=== PATIENT | female | born 1975 | race Hispanic/Latino ===

== ENCOUNTER 2021-09-14 12:50 | Emergency (ER) | payer OTHER ==
[2021-09-14 12:58] VITALS: BP 125/79
[2021-09-14 15:11] LABS: Basophils % (Auto) 0.1 % (0.0-1.8); Eosinophils # (Auto) 0.2 K/mm3 (0.0-0.4); Eosinophils % (Auto) 1.8 % (0.0-4.3); Hematocrit 43.6 % (30.3-42.9); Hemoglobin 13.8 gm/dl (10.1-14.3); Lymphocytes # (Auto) 2.7 K/mm3 (1.2-5.4); Lymphocytes % (Auto) 30.5 % (13.4-35.0); Mean Corpuscular HGB Conc 32 % (30-34); Mean Corpuscular Volume 88 fl (79-97); Monocytes # (Auto) 0.4 K/mm3 (0.0-0.8); Monocytes % (Auto) 4.3 % (0.0-7.3); Platelet Count 275 K/mm3 (140-440); Red Blood Count 4.97 M/mm3 (3.65-5.03); Red Cell Distribution Width 13.8 % (13.2-15.2)
[2021-09-14 15:31] LABS: Alanine Aminotransferase 19 units/L (7-56); Albumin 4.2 g/dL (3.9-5); Blood Urea Nitrogen 15 mg/dL (7-17); Calcium 9.6 mg/dL (8.4-10.2); Hemolysis Index 31
[2021-09-14 15:34] LABS: BUN/Creatinine Ratio 21
--- NOTE | 2021-09-14 15:48 | Emergency Department Report ---
ED Female HPI - General Chief complaint: Urogenital-Female Stated complaint: CAN'T PEE Time Seen by Provider: 09/14/21 14:53 Source: patient Mode of arrival: Ambulatory Limitations: No Limitations - History of Present Illness Initial comments: Patient is a 46-year-old female presents emergency room with complaints of urinary retention. Patient states that she was at [facility] on 09/09/21 for urinary retention and had a Wong catheter placed at that time and states that she had blood work and UA performed and was placed on ciprofloxacin. She states that last night her Wong catheter came out. She states since then she has been having some urinary retention. She reports that whenever she tries to urinate it is very painful and she has been experiencing back pain. She states that she believes the Cipro is not helping and states that she has been having hematuria and blood clots present. Patient states that she has an appointment with a urologist on 09/18/20. No allergies to medications. She reports that after having the Wong catheter placed in the emergency department her pain has significantly improved. - Related Data Previous Rx's Medication Instructions Recorded Last Taken Type cephALEXin [Keflex] 500 mg PO BID 10 Days #20 capsule 09/14/21 Unknown Rx ED Review of Systems ROS: Stated complaint: CAN'T PEE Other details as noted in HPI Comment: All other systems reviewed and negative ED Past Medical Hx - Medications Home Medications: Home Medications Medication Instructions Recorded Confirmed Last Taken Type cephALEXin [Keflex] 500 mg PO BID 10 Days #20 capsule 09/14/21 Unknown Rx ED Physical Exam - General Limitations: No Limitations General appearance: alert, in no apparent distress - Head Head exam: Present: atraumatic, normocephalic - Eye Eye exam: Present: normal appearance - ENT ENT exam: Present: mucous membranes moist - Respiratory Respiratory exam: Present: normal lung sounds bilaterally. Absent: respiratory distress, wheezes, rales, rhonchi, stridor, chest wall tenderness, accessory muscle use, decreased breath sounds, prolonged expiratory - Cardiovascular Cardiovascular Exam: Present: regular rate, normal rhythm, normal heart sounds. Absent: systolic murmur, diastolic murmur, rubs, gallop - GI/Abdominal GI/Abdominal exam: Present: soft, normal bowel sounds. Absent: distended, tenderness, guarding, rebound, rigid - Back Exam Back exam: Absent: CVA tenderness (R), CVA tenderness (L) - Neurological Exam Neurological exam: Present: alert, oriented X3 - Psychiatric Psychiatric exam: Present: normal affect, normal mood - Skin Skin exam: Present: warm, dry, intact ED Course Vital Signs 09/14/21 12:57 Temperature 97.6 F Pulse Rate 94 H Respiratory 18 Rate Blood Pressure 125/79 O2 Sat by Pulse 99 Oximetry ED Medical Decision Making - Lab Data Result diagrams: 09/14/21 15:00 09/14/21 15:00 Lab Results 09/14/21 09/14/21 09/14/21 Range/Units 15:00 15:00 Unknown WBC 8.9 (4.5-11.0) K/mm3 RBC 4.97 (3.65-5.03) M/mm3 Hgb 13.8 (10.1-14.3) gm/dl Hct 43.6 H (30.3-42.9) % MCV 88 (79-97) fl MCH 28 (28-32) pg MCHC 32 (30-34) % RDW 13.8 (13.2-15.2) % Plt Count 275 (140-440) K/mm3 Lymph % (Auto) 30.5 (13.4-35.0) % Cocke % (Auto) 4.3 (0.0-7.3) % Eos % (Auto) 1.8 (0.0-4.3) % Baso % (Auto) 0.1 (0.0-1.8) % Lymph # (Auto) 2.7 (1.2-5.4) K/mm3 Cocke # (Auto) 0.4 (0.0-0.8) K/mm3 Eos # (Auto) 0.2 (0.0-0.4) K/mm3 Baso # (Auto) 0.0 (0.0-0.1) K/mm3 Seg Neutrophils % 63.3 (40.0-70.0) % Seg Neutrophils # 5.6 (1.8-7.7) K/mm3 Sodium 137 (137-145) mmol/L Potassium 3.9 (3.6-5.0) mmol/L Chloride 100.8 (98-107) mmol/L Carbon Dioxide 24 (22-30) mmol/L Anion Gap 16 mmol/L BUN 15 (7-17) mg/dL Creatinine 0.7 (0.6-1.2) mg/dL Estimated GFR > 60 ml/min BUN/Creatinine Ratio 21 % Glucose 116 H (65-100) mg/dL Calcium 9.6 (8.4-10.2) mg/dL Total Bilirubin 0.40 (0.1-1.2) mg/dL AST 18 (5-40) units/L ALT 19 (7-56) units/L Alkaline Phosphatase 105 (35-129) units/L Total Protein 7.4 (6.3-8.2) g/dL Albumin 4.2 (3.9-5) g/dL Albumin/Globulin Ratio 1.3 % Urine Color Red (Yellow) Urine Turbidity Clear (Clear) Urine pH 8.0 H (5.0-7.0) Ur Specific Grady 1.005 (1.003-1.030) Urine Protein 100 mg/dl (Negative) mg/dL Urine Glucose (UA) Neg (Negative) mg/dL Urine Ketones Neg (Negative) mg/dL Urine Blood Mod (Negative) Urine Nitrite Neg (Negative) Urine Bilirubin Neg (Negative) Urine Urobilinogen < 2.0 (<2.0) mg/dL Ur Leukocyte Esterase Mod (Negative) Urine WBC (Auto) 34.0 H (0.0-6.0) /HPF Urine RBC (Auto) > 182.0 (0.0-6.0) /HPF U Epithel Cells (Auto) < 1.0 (0-13.0) /HPF Urine Mucus Few /HPF - Radiology Data Radiology results: report reviewed Ordering Physician: DAVIDE ROSE Date of Service: 09/14/21 Procedure(s): CT abdomen pelvis wo con Accession Number(s): [id number] cc: DAVIDE ROSE CT ABDOMEN AND PELVIS WITHOUT CONTRAST HISTORY: urinary rentention, back pain, hematuria in wong COMPARISON: None TECHNIQUE: Routine abdominal and pelvic CT exam performed without contrast. Lack of intravenous contrast limits evaluation of the vascular and solid organs.. All CT scans at this location are performed using CT dose reduction for ALARA by means of automated exposure control. FINDINGS: CT ABDOMEN: Lung Bases: No significant abnormality. Liver: No significant abnormality. Biliary: There are multiple calcified gallstones in the gallbladder. Spleen: No significant abnormality. Unenlarged. Pancreas: No significant abnormality. Adrenals: No significant abnormality. Kidneys: No significant abnormality. Lymphatics: No lymphadenopathy. Vasculature: No significant abnormality. Bowel/Peritoneum: No significant abnormality. No free air. No free fluid. Normal appendix. CT PELVIC: : Fully catheter in the urinary bladder. Lymphatics: No lymphadenopathy. Osseous Structures: No aggressive appearing osseous lesions. Additional Findings: None IMPRESSION: 1. No acute findings. 2. Cholelithiasis without evidence of acute cholecystitis. Signer Name: Edvin Glasgow MD Signed: 09/14/2021 4:03 PM Workstation Name: [id number] Transcribed By: MINH Dictated By: Edvin Glasgow MD Electronically Authenticated By: Edvin Glasgow MD Signed Date/Time: 09/14/211602 DD/ 02 TD/TT: - Medical Decision Making Patient is a 46-year-old female presents emergency room with complaints of urinary retention. Patient states that she was at [facility] on 09/09/21 for urinary retention and had a Wong catheter placed at that time and states that she had blood work and UA performed and was placed on ciprofloxacin. She states that last night her Wong catheter came out. She states since then she has been having some urinary retention. She reports that whenever she tries to urinate it is very painful and she has been experiencing back pain. She states that she believes the Cipro is not helping and states that she has been having hematuria and blood clots present. Patient states that she has an appointment with a urologist on 09/18/20. No allergies to medications. She reports that after having the Wong catheter placed in the emergency department her pain has significantly improved. Vitals are normal. No abdominal or CVA tenderness on exam. Wong was placed prior to my examination and she has appropriate output but there is hematuria present. Labs are stable. UA shows many red blood cells, moderate white blood cells and leukocyte esterase. Given that patient is still having symptoms of dysuria with white blood cells and leukocyte esterase present, will cover for UTI. Discussed all findings with patient and discussed the importance of keeping her appointment with her urologist. advised patient please take medication as prescribed. Increase your fluid intake. Please keep your appointment with your urologist. Follow-up with your primary care doctor. Return to emergency room for any new or worsening symptoms. Critical care attestation.: If time is entered above; I have spent that time in minutes in the direct care of this critically ill patient, excluding procedure time. ED Disposition Clinical Impression: Urinary retention, Dysuria Hematuria Qualifiers: Hematuria type: unspecified type Qualified Code(s): R31.9 - Hematuria, unspecified UTI (urinary tract infection) Qualifiers: Urinary tract infection type: acute cystitis Hematuria presence: with hematuria Qualified Code(s): N30.01 - Acute cystitis with hematuria Back pain Qualifiers: Back pain location: low back pain Chronicity: acute Back pain laterality: bilateral Sciatica presence: without sciatica Qualified Code(s): M54.50 - Low back pain, unspecified Disposition: HOME / SELF CARE / HOMELESS Is pt being admited?: No Does the pt Need Aspirin: No Condition: Stable Instructions: Acute Urinary Retention, Female, [id number], Urinary Tract Infection, Adult Additional Instructions: please take medication as prescribed. Increase your fluid intake. Please keep your appointment with your urologist. Follow-up with your primary care doctor. Return to emergency room for any new or worsening symptoms. Prescriptions: cephALEXin [Keflex] 500 mg PO BID 10 Days #20 capsule Referrals: PRIMARY CARE,MD [Primary Care Provider] - 3-5 Days your, urologist [Other] - 3-5 Days Time of Disposition: 17:03 Print Language: UKRAINIAN
--- NOTE | 2021-09-14 16:08 | Cat Scan Report ---
CT ABDOMEN AND PELVIS WITHOUT CONTRAST HISTORY: urinary rentention, back pain, hematuria in wong COMPARISON: None TECHNIQUE: Routine abdominal and pelvic CT exam performed without contrast. Lack of intravenous cont rast limits evaluation of the vascular and solid organs.. All CT scans at this location are performed using CT dose reduction for ALARA by means of automated exposure control. FINDINGS: CT ABDOMEN: Lung Bases: No significant abnormality. Liver: No significant abnormality. Biliary: There are multiple calcified gallstones in the gallbladder. Spleen: No significant abnormality. Unenlarged. Pancreas: No significant abnormality. Adrenals: No significant abnormality. Kidneys: No significant abnormality. Lymphatics: No lymphadenopathy. Vasculature: No significant abnormality. Bowel/Peritoneum: No significant abnormality. No free air. No free fluid. Normal appendix. CT PELVIC: : Fully catheter in the urinary bladder. Lymphatics: No lymphadenopathy. Osseous Structures: No aggressive appearing osseous lesions. Additional Findings: None IMPRESSION: 1. No acute findings. 2. Cholelithiasis without evidence of acute cholecystitis. Signer Name: Edvin Glasgow MD Signed: 09/14/2021 4:03 PM Workstation Name: [id number]
[2021-09-14 16:54] LABS: Bilirubin,Urine NEG (Negative); Blood,Urine MOD (Negative); Color,Urine Red (Yellow); Mucus,Urine FEW /HPF; Urobilinogen,Urine < 2.0 mg/dL (<2.0)
[2021-09-14 16:55] LABS: RBC,Urine > 182.0 /HPF (0.0-6.0)
== END 2021-09-14 17:33 | disposition home or self-care (01) ==
LOC: ED 12:50
DX: R33.9 Retention of urine, unspecified (principal); R31.9 Hematuria, unspecified; N39.0 Urinary tract infection, site not specified; M54.50 Low back pain, unspecified
CPT/HCPCS: 36415; 51702; 74176; 80053; 81001; 85025; 87086; 99284